=== PATIENT | female | born 1995 | race Caucasian/White ===

== ENCOUNTER 2019-08-12 19:28 | Emergency (ER) | payer OTHER ==
[~2019-08-12] VITALS: Ht 162.6 cm; Wt 108.9 kg
[~2019-08-12 19:28] MED LIST: NORCO 5-325 TA1 EACH PO
[2019-08-12] MEDS ORDERED: AMOXICILLIN 50500 MG PO (20:16)
[2019-08-12] MEDS ORDERED: PREDNISONE 20 M20 M1 PO (20:16)
[2019-08-12 20:18] VITALS: BP 163/105
== END 2019-08-12 20:18 | disposition home or self-care (01) ==
LOC: M.ERS 19:28
DX: J02.9 Acute pharyngitis, unspecified (principal); M54.2 Cervicalgia; Z79.899 Other long term (current) drug therapy